=== PATIENT | male | born 1980 | race Caucasian/White ===

== ENCOUNTER 2016-07-22 05:40 | Emergency (ER) | payer OTHER ==
[2016-07-22 06:11] LABS: BILIRUBIN NEGATIVE (NEGATIVE); BLOOD NEGATIVE Ery/uL (NEGATIVE); CLARITY CLEAR (CLEAR); COLOR YELLOW (YELLOW); GLUCOSE (U) NORMAL (NORMAL); KETONE (U) NEGATIVE (NEGATIVE); LEUKOCYTES NEGATIVE Leu/uL (NEGATIVE); NITRITE NEGATIVE (NEGATIVE); PROTEIN NEGATIVE (NEGATIVE); UROBILINOGEN 0.2 mg/dL (0.2-1.0); pH 6.5 (5.0-9.0)
[2016-07-22 06:35] LABS: BASOPHIL 0.5 % (0-2); EOSINOPHIL 2.8 % (0-5); HCT 42.5 % (42.0-52.0); HGB 14.1 g/dl (13.2-18.0); LYMPHOCYTE 27.5 % (15-48); MCHC 33.2 g/dL (32.0-36.0); MCV 84.5 fL (78.0-100.0); MONOCYTE 9.3 % (0-12); MPV 10.6 fL (6.0-9.5); NEUTROPHIL 59.9 % (41-80); PLT 339 K/uL (150-400); RBC 5.03 M/uL (4.70-6.00); RDW 13.4 % (11.5-14.0); WBC 6.4 K/uL (4.0-10.5)
[2016-07-22 06:50] LABS: POTASSIUM 4.6 mmol/L (3.5-5.1)
== END 2016-07-22 07:31 | disposition home or self-care (01) ==
LOC: FER 05:40
PROVIDERS: Internal Medicine
DX: R10.9 Unspecified abdominal pain (principal)
CPT/HCPCS: 36415; 80048; 81003; 85025; J1885; J2405

== ENCOUNTER 2016-07-23 01:30 | Emergency (ER) | payer OTHER ==
[2016-07-23 02:06] LABS: BILIRUBIN NEGATIVE (NEGATIVE); BLOOD NEGATIVE Ery/uL (NEGATIVE); CLARITY CLEAR (CLEAR); COLOR YELLOW (YELLOW); GLUCOSE (U) NORMAL (NORMAL); KETONE (U) NEGATIVE (NEGATIVE); LEUKOCYTES NEGATIVE Leu/uL (NEGATIVE); NITRITE NEGATIVE (NEGATIVE); PROTEIN NEGATIVE (NEGATIVE); SPECIFIC GRAVITY 1.025 (1.001-1.030); UROBILINOGEN 0.2 mg/dL (0.2-1.0); pH 5.5 (5.0-9.0)
[2016-07-23 03:40] LABS: POTASSIUM 4.6 mmol/L (3.5-5.1)
== END 2016-07-23 04:41 | disposition home or self-care (01) ==
LOC: FER 01:30
PROVIDERS: Emergency Medicine Emergency Medical Services
DX: R30.0 Dysuria (principal); R33.9 Retention of urine, unspecified; E86.9 Volume depletion, unspecified
CPT/HCPCS: 36415; 80048; 81003; 96372; J1885

== ENCOUNTER 2016-09-30 09:23 | Emergency (ER) | payer OTHER ==
[2016-09-30 10:20] LABS: BASOPHIL 0.1 % (0-2); EOSINOPHIL 0 % (0-5); HCT 41.6 % (42.0-52.0); HGB 14.4 g/dl (13.2-18.0); LYMPHOCYTE 4.7 % (15-48); MCH 28.6 pg (25.0-31.0); MCHC 34.6 g/dL (32.0-36.0); MCV 82.5 fL (78.0-100.0); MONOCYTE 6.3 % (0-12); MPV 10.3 fL (6.0-9.5); NEUTROPHIL 88.9 % (41-80); PLT 297 K/uL (150-400); RBC 5.04 M/uL (4.70-6.00); WBC 20.9 K/uL (4.0-10.5)
[2016-09-30 10:31] LABS: INR 1.04 (0.9-1.2); PROTHROMBIN TIME 13.2 SECONDS (11.7-14.0); PTT 27.4 SECONDS (23.2-31.4)
[2016-09-30 10:33] LABS: D-DIMER 0.29 ug/mLFEU (0.00-0.41)
[2016-09-30 10:36] LABS: ALBUMIN 4.3 g/dL (3.5-5.0); BILIRUBIN - TOTAL 1.1 mg/dL (0.1-1.0); CREATININE 1.2 mg/dL (0.7-1.2); GLOBULIN (CALCULATION) 2.9 g/dL (2.2-4.2); POTASSIUM 3.9 mmol/L (3.5-5.1); TOTAL PROTEIN 7.2 g/dL (6.4-8.3)
[2016-09-30 12:34] LABS: LACTIC ACID 0.8 mmol/L (0.5-2.2)
== END 2016-09-30 12:52 | disposition home or self-care (01) ==
LOC: FER 09:23
PROVIDERS: Internal Medicine
DX: J20.9 Acute bronchitis, unspecified (principal); E86.0 Dehydration; Z87.01 Personal history of pneumonia (recurrent)
CPT/HCPCS: 36415; 71020; 80053; 83605; 85025; 85379; 85610; 85730; J1956

== ENCOUNTER → 2021-01-08 | Day surgery (SDC) | payer OTHER ==
[~2021-01-08] VITALS: Ht 180.3 cm; Wt 127.0 kg
[~2021-01-08] MED LIST: ALL DAY ALLERGY10 MG PO; CELEXA20 MG PO; ETODOLAC500 MG PO; FLEXERIL10 MG PO; IBUPROFEN800 MG PO; PHENERGAN25 M1 PO; PRILOSEC20 MG PO; PRINIVIL10 MG PO; VICODIN 10/3251 EACH PO; ZOFRAN4 MG SL
[2021-01-08 08:46] LABS: HCT 44.6 % (42.0-52.0); HGB 14.5 g/dl (13.2-18.0); MCH 28.5 pg (25.0-31.0); MCHC 32.5 g/dL (32.0-36.0); MCV 87.6 fL (78.0-100.0); MPV 11.3 fL (6.0-9.5); RBC 5.09 M/uL (4.70-6.00); RDW 12.9 % (11.5-14.0); WBC 6.2 K/uL (4.0-10.5)
[2021-01-08 09:08] LABS: ALBUMIN 3.8 g/dL (3.4-5.0); BILIRUBIN - TOTAL 0.4 mg/dL (0.2-1.0); CREATININE 1.13 mg/dL (0.67-1.17); GLOBULIN (CALCULATION) 4.3 g/dL; POTASSIUM 4.5 mmol/L (3.5-5.1); TOTAL PROTEIN 8.1 g/dL (6.4-8.2)
== END | disposition home or self-care (01) ==
LOC: FAS 07:00
PROVIDERS: Surgery
DX: K40.31 Unilateral inguinal hernia, with obstruction, without gangrene, recurrent (principal); D17.6 Benign lipomatous neoplasm of spermatic cord; E66.01 Morbid (severe) obesity due to excess calories; I10 Essential (primary) hypertension; K76.0 Fatty (change of) liver, not elsewhere classified; K21.9 Gastro-esophageal reflux disease without esophagitis; N40.0 Benign prostatic hyperplasia without lower urinary tract symptoms; Z68.39 Body mass index [BMI] 39.0-39.9, adult; Z79.1 Long term (current) use of non-steroidal anti-inflammatories (NSAID); Z79.899 Other long term (current) drug therapy
CPT/HCPCS: 36415; 80053; 93005; C1781; J0690; J1100; J1170; J1885; J2250; J2405; J2704; J2710; J3010; J7120

== ENCOUNTER 2021-09-19 10:27 | Emergency (ER) | payer OTHER ==
[2021-09-19 11:36] LABS: BASOPHIL 1.2 % (0-2); EOSINOPHIL 1.5 % (0-5); HCT 43.6 % (42.0-52.0); HGB 14.8 g/dl (13.2-18.0); LYMPHOCYTE 36.8 % (15-48); MCH 28.8 pg (25.0-31.0); MCHC 33.9 g/dL (32.0-36.0); MCV 84.8 fL (78.0-100.0); MONOCYTE 9.9 % (0-12); MPV 11.2 fL (6.0-9.5); NEUTROPHIL 50.3 % (41-80); NRBC 0; PLT 269 K/uL (150-400); RBC 5.14 M/uL (4.70-6.00); RDW 13.2 % (11.5-14.0)
[2021-09-19 11:54] LABS: BUN/CREAT RATIO (CALC) 15.4 RATIO; CREATININE 1.04 mg/dL (0.67-1.17); POTASSIUM 4.2 mmol/L (3.5-5.1)
[2021-09-19] MEDS ORDERED: AMOXICILLIN500 MG PO (15:02)
== END 2021-09-19 15:10 | disposition home or self-care (01) ==
LOC: FER 10:27
PROVIDERS: Emergency Medicine
DX: R22.0 Localized swelling, mass and lump, head (principal); I10 Essential (primary) hypertension
CPT/HCPCS: 36415; 70487; 80048; 85025; Q9967